=== PATIENT | female | born 1975 | race Caucasian/White ===

== ENCOUNTER 2019-06-29 03:04 | Emergency (ER) | payer OTHER ==
--- NOTE | 2019-06-29 03:15 | PDOC ---
History of Present Illness - General Stated Complaint: CHEST PAIN Time Seen by Provider: 06/29/19 03:14 - History of Present Illness Initial Comments: 06/29/19 04:54 43yo F hx pituitary tumor (removed 2004) and thyroid nodule? presenting from home c/o episode of palpitations and chest pain. Pt was relaxing tonight laying down and when got up to go to the bathroom, pt suddenly felt epigastric/sternal pressure type chest pain, difficulty breathing, palpitations, nausea, and lightheadedness. Pt relaxed and the sx resolved on their own. EMS gave nitro and aspirin on the way. Pt feels like heart is still racing a bit now but denies all other sx. Denies Fhx early CAD, hx CAD or cardiac problems, hx pulmonary problems, hx clots/PE, recent travel, recent illness, sick contacts, recent surgeries, estrogen/OCP use, vertigo, vision changes, F/C, vomiting, SANTAMARIA, cough, wheezing, abdominal pain, back pain, D/C, blood in stool, dysuria, hematuria, flank pain, numbness/tingling, weakness. No PCP. Past History - Past Medical History Allergies/Adverse Reactions: Allergies Allergy/AdvReac Type Severity Reaction Status Date / Time No Known Allergies Allergy Verified 11/27/12 21:16 Home Medications: Ambulatory Orders No Home Medications 0 dose .ROUTE UTDICT 11/27/12 Meclizine HCl [Antivert -] 25 mg PO QID PRN #12 tablet 11/28/12 Ondansetron [Zofran *Odt*] 4 mg SL TID PRN #10 od.tablet 11/28/12 - Immunization History Immunization Up to Date: No - Suicide/Smoking/Psychosocial Hx Smoking Status: No Smoking History: Never smoked Number of Cigarettes Smoked Daily: 0 Review of Systems - Review of Systems Comments:: 06/29/19 04:49 Constitutional: Negative for chills, fever, fatigue. HENT: Negative for sore throat, rhinorrhea, congestion. Eyes: Negative for visual disturbance. Respiratory: Positive for shortness of breath. Negative for cough, and wheezing. Cardiovascular: Positive for chest pain, palpitations. Negative for leg swelling. Gastrointestinal: Positive for epigastric pain, nausea. Negative for abdominal pain, blood in stool, constipation, diarrhea, nausea, and vomiting. Genitourinary: Negative for dysuria, flank pain, and hematuria. Musculoskeletal: Negative for myalgias, back pain, and neck pain. Skin: Negative for rash. Neurological: Positive for light-headedness. Negative for dizziness, syncope, weakness, numbness and headaches. Psychiatric/Behavioral: Negative for behavioral problems and confusion. *Physical Exam - Physical Exam Comments: 06/29/19 04:56 Gen: Alert, NAD, comfortable-appearing. HEENT: PERRL, EOMI, MMM, NCAT. No conjunctival pallor. Sclera are non-icteric. CV: Regular rate and rhythm. No murmurs, rubs, or gallops. PULM: No resp distress. CTAB, no wheezes, rales, or rhonchi. ABD: soft, NT/ND, no rebound tenderness or guarding, no CVA tenderness. BACK: No TTP of c/t/l-spine. No step-offs or deformities. MSK: No bony deformities. 2+ pulses in all extremities. NEURO: AAOx3. PERRL. No gross CN deficits. Strength and sensation grossly intact throughout. EXTREMITIES: No cyanosis. No clubbing. No edema. No calf tenderness. PSYCH: Normal mood and thought pattern. SKIN: Warm and dry. Normal capillary refill. No rashes. No jaundice. Heart Score/ECG Review - ECG Impressions Comment:: 06/29/19 05:56 NSR, 65bpm, normal axis, no TWIs, no ST elevations or depressions. ED Treatment Course - LABORATORY CBC & Chemistry Diagram: 06/29/19 04:40 06/29/19 04:40 Medical Decision Making - Medical Decision Making 06/29/19 04:50 43yo F hx pituitary tumor (removed 2004) and thyroid nodule? presenting from home c/o episode of palpitations and chest pain. Pt was relaxing tonight laying down and when got up to go to the bathroom, pt suddenly felt epigastric/sternal pressure type chest pain, difficulty breathing, palpitations, nausea, and lightheadedness. Pt relaxed and the sx resolved on their own. EMS gave nitro and aspirin on the way. Pt feels like heart is still racing a bit now but denies all other sx. Denies Fhx early CAD, hx CAD or cardiac problems, hx pulmonary problems, hx clots/PE, recent travel, recent illness, sick contacts, recent surgeries, estrogen/OCP use, vertigo, vision changes, F/C, vomiting, SANTAMARIA, cough, wheezing, abdominal pain, back pain, D/C, blood in stool, dysuria, hematuria, flank pain, numbness/tingling, weakness, recent stress or anxiety. No PCP. -EKG -CXR -CBC, CMP, Cardiac profile, Lipase, TSH -Dispo: likely d/c home pending w/u 06/29/19 05:39 Labs and CXR reviewed. No acute concerning findings. 06/29/19 05:57 EKG reviewed. Pt feeling well now, no complaints. Will dc home with cardiology. Return precautions given. Pt understands all dc instructions and all questions were answered. *DC/Admit/Observation/Transfer Diagnosis at time of Disposition: Palpitations - Discharge Dispostion Disposition: HOME Condition at time of disposition: Stable Decision to Admit order: No - Referrals Referrals: Orlando Salas MD [Staff Physician] - [facility] [place] [Provider Group] - Patient Instructions Printed Discharge Instructions: DI for Atypical Chest Pain, DI for Palpitations Additional Instructions: You have been seen in the Emergency Department for chest pain and palpitations. Your EKG, chest X-ray, and labs, including Troponin (a heart enzyme), show no signs concerning for an emergent condition such as a heart attack or pneumonia. Follow-up with your primary care doctor within 1 week. We have given you a referral to the [facility] clinic to set up a primary care doctor - give them a call to set up an appointment. We have also referred you to a [facility] for further evaluation - call the office to make an appointment for this week. Return to the ED immediately if you experience chest pain, difficulty breathing , dizziness, or any other new or worsening symptom. - Post Discharge Activity
--- NOTE | 2019-06-29 03:25 | PDOC ---
Attending Attestation - Resident Resident Name: Julia Amaya - ED Attending Attestation I have performed the following: I have examined & evaluated the patient, The case was reviewed & discussed with the resident, I agree w/resident's findings & plan - HPI HPI: 06/29/19 04:36 Pt comes with chest palpitations that woke her up. - Physicial Exam PE: 06/29/19 04:37 Agree with resident exam. Pt has normal exam. Pt has no tachycardia at this time. Pt has no flank pain. No abd pain. No rebound and no guarding. No pitting edema. - Medical Decision Making 06/29/19 04:40 Basic labs; ekg and cxr 06/29/19 05:40 Labs normal; cxr normal; pt will require holter monitor. EKG pending. 06/29/19 05:56 CXR normal. EKG NSR; labs normal. Heart Score/ECG Review - ECG Intrepretation Rhythm: Regular Rhythm - [place]: Normal - P and MD Prominent R with upright T in V1 (true posterior [place]): No Delta Wave(s) Present: No WPW: No - ST and T Early Repolarization: Yes Non Specific ST-T Wave changes: No Flattened T Waves: No Prolonged Q-T Interval: No - ECG Impressions Normal ECG: Yes Non-specific ST Elevation: No Ischemic Changes: No Bradycardia: No Torsades nicolette Pointes: No WPW: No
[2019-06-29 04:51] LABS: BASO % 1.5 % (0-2.0); EOS % 0.6 % (0-4.5); HEMATOCRIT 32.6 % (32.4-45.2); HEMOGLOBIN 10.2 GM/dL (10.7-15.3); LYMPH % 17.2 % (8-40); MCH 23.7 pg (25.7-33.7); MCHC 31.3 g/dl (32.0-36.0); MEAN CELL VOLUME 75.8 fl (80-96); MEAN PLT VOLUME 10.4 fl (7.5-11.1); MONO % 7.2 % (3.8-10.2); NEUT % 73.5 % (42.8-82.8); PLATELET COUNT 152 K/MM3 (134-434); RDW 17.9 % (11.6-15.6); WHITE BLOOD COUNT 7.8 K/mm3 (4.0-10.0)
[2019-06-29 05:17] VITALS: TEMP 98.1
[2019-06-29 05:22] LABS: ALK PHOS 45 U/L (45-117); ANION GAP 7 MMOL/L (8-16); BILIRUBIN,TOTAL 0.1 mg/dL (0.2-1); BLOOD UREA NITROGEN 13.9 mg/dL (7-18); CALCIUM 8.5 mg/dL (8.5-10.1); CHLORIDE 111 mmol/L (98-107); CO2 24 mmol/L (21-32); CREATININE 0.8 mg/dL (0.55-1.3); GLUCOSE,RANDOM 98 mg/dL (74-106); LIPASE 162 U/L (73-393); SGOT/AST 18 U/L (15-37); SGPT/ALT 14 U/L (13-61); SODIUM 142 mmol/L (136-145); TOT PROT 6.8 g/dl (6.4-8.2)
[2019-06-29 06:02] VITALS: BP 151/76; PULSE 68
--- NOTE | 2019-06-29 09:17 | EKG ---
Test Reason : Blood Pressure : / mmHG Vent. Rate : 065 BPM Atrial Rate : 065 BPM P-R Int : 174 ms QRS Dur : 098 ms QT Int : 420 ms P-R-T Axes : 017 019 049 degrees QTc Int : 436 ms NORMAL SINUS RHYTHM NORMAL ECG WHEN COMPARED WITH ECG OF 28-NOV-2012 01:10, NO SIGNIFICANT CHANGE WAS FOUND Confirmed by JAKE CARDONA MD ([id number]) on 06/29/2019 9:16:43 AM Referred By: Confirmed By:JAKE CARDONA MD
== END 2019-06-29 06:10 | disposition home or self-care (01) ==
LOC: JER 03:04
DX: R00.2 Palpitations (principal)
CPT/HCPCS: 36415; 71046-TC-FY; 80053; 82550; 82553; 83690; 84443; 84484; 85025; 93005; 93010; 99283-25